=== PATIENT | female | born 1985 | race Caucasian/White ===

== ENCOUNTER 2017-10-06 16:39 | Emergency (ER) | payer MEDICAID ==
[~2017-10-06] VITALS: Ht 154.9 cm; Wt 62.1 kg
[2017-10-06 16:44] VITALS: BP_SYST 109
--- NOTE | 2017-10-06 16:48 | NUR ---
Patient to ER bed 6 to gown for evaluation. Side rails up. Report given to Vi ASIF.
--- NOTE | 2017-10-06 16:50 | NUR ---
Patient complaining of a migraine which started on Tuesday. Patient stated that she went to her primary physician this past Tuesday. Patient took Ibuprofen and Tylenol as per physician order. However, pain would go away but would come back. Patient came to ED today because pain is 10/10. Patient denies n/v/d, dizziness and change in vision. No other complaints noted.
[2017-10-06] MEDS ORDERED: KETOROLAC TROMETHAMINE 15 MG VIAL IVP ONE (17:15)
[2017-10-06] MEDS ORDERED: NACL 0.9% 1,000 ML IV ONE (17:15)
[2017-10-06] MEDS ORDERED: DIPHENHYDRAMINE HCL 25 MG CAPSULE PO ONE (17:15)
[2017-10-06] MEDS ORDERED: METOCLOPRAMIDE HCL 10 MG TABLET PO ONE (17:15)
--- NOTE | 2017-10-06 17:15 | NUR ---
ER PA Kwong at bedside examining patient.
--- NOTE | 2017-10-06 17:52 | NUR ---
Medicated per MD orders. IVF infusing with no s/s of infiltration at this time. Will cont to monitor
--- NOTE | 2017-10-06 18:33 | NUR ---
ER KATELIN Kwong at bedside re-examining patient.
[2017-10-06 19:10] VITALS: BP_SYST 109
--- NOTE | 2017-10-06 19:10 | NUR ---
Patient given written and verbal discharge instructions and verbalizes understanding. ER KATELIN Kwong discussed with patient the results and treatment provided. Patient in stable condition. ID arm band removed. IV catheter removed intact and dressing applied, no active bleeding. Rx of Sumatriptan given. Patient educated on pain management and to follow up with PMD within 2-3 days. Pain Scale is 2/10 . Opportunity for questions provided and answered. Medication side effect fact sheet provided.
== END 2017-10-06 19:10 | disposition home or self-care (01) ==
LOC: SED 16:39
DX: R51 Headache (principal)
CPT/HCPCS: 81025; 96374; 99284; J1885; J7030; J8597; Q0163